=== PATIENT | male | born 1995 | race Caucasian/White ===

== ENCOUNTER 2024-11-23 06:29 | Day surgery (SDC) | payer OTHER, SELFPAY | END 2024-11-23 14:21 | disposition home or self-care (01) | LOC: GI 06:29 | PROVIDERS: ATTENDING PHYSICIAN Student in an Organized Health Care Education/Training Program | DX: Z12.11 Encounter for screening for malignant neoplasm of colon (principal); D12.4 Benign neoplasm of descending colon; Z83.710 Family history of adenomatous and serrated polyps | CPT/HCPCS: 45385; 88305 ==